=== PATIENT | female | born 1940 | race Caucasian/White ===

== ENCOUNTER 2017-05-26 04:02 | Observation (INO) | payer MEDICARE ==
[~2017-05-26] VITALS: Ht 154.9 cm; Wt 48.7 kg
[2017-05-26] MEDS ORDERED: NORCO 10-325 T1 EACH PO (04:21)
[2017-05-26] MEDS ORDERED: PROLIA60 MG/1 ML SUB-Q (04:21)
[2017-05-26] MEDS ORDERED: LOSARTAN POTAS100 MG PO (04:21)
[2017-05-26] MEDS ORDERED: ASPIRIN81 MG PO (04:22)
[2017-05-26] MEDS ORDERED: VENTOLIN HFA18 GM INH (04:22)
[2017-05-26] MEDS ORDERED: ADVAIR 100-501 EACH INH (04:23)
[2017-05-26] MEDS ORDERED: PREMARIN30 GM PV (04:23)
[2017-05-26] MEDS ORDERED: FLONASE ALLERG9.9 ML NAS (04:24)
[2017-05-26] MEDS ORDERED: ZOCOR10 MG PO (04:24)
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
--- NOTE | 2017-05-26 08:15 | NUR ---
DR PAVON IN TO SEE PATIENT. THIS RN ASSISTS PATIENT TO ORDER BREAKFAST.
--- NOTE | 2017-05-26 09:06 | NUR ---
ASSUMED CARE FROM CRISTOPHER WASHINGTON. REPORT RECIEVED. 0900 MEDICATIONS GIVEN TO PATIENT. PATIENT ENDORSES "HAVING GAG REFLEX WITH SWALLOWING, CHOKING ON PILLS." DR. VILLEGAS NOTIFIED.
--- NOTE | 2017-05-26 11:52 | NUR ---
PATIENT SITTING UP IN BED EATING LUNCH. CALL BUTTON IN REACH. NO OTHER NEEDS AT THIS TIME.
--- NOTE | 2017-05-26 12:03 | NUR ---
REPROT FROM [facility], TAKING OVER PT CARE. PT SITTING UP IN BED EATING LUNCH. ALERT AND ORIENTED. 97% OXYGEN SATURATION ON ROOM AIR. PT REPORTS NO PAIN.
--- NOTE | 2017-05-26 13:39 | NUR ---
PT OFF UNIT TO [facility]
--- NOTE | 2017-05-26 14:27 | NUR ---
PATIENT SITTING UP IN BED WITH IN ROOM. FRESH ICE WATER GIVEN. ORAL CARE DONE. NO OTHER NEEDS AT THIS TIME. CALL BUTTON IN REACH.
--- NOTE | 2017-05-26 14:44 | NUR ---
MED RECONCILICATION COMPLETED WITH REVIEW WITH PATIENT.
--- NOTE | 2017-05-26 16:09 | NUR ---
PT REPORTS SHE IS FEELING BETTER AND IS FRUSTRATED TO BE IN THE HOSPITAL. SHE UNDERSTANDS NEED TO STAY OVERNIGHT FOR OBSERVATION AND LABS IN AM TO MONITOR.
--- NOTE | 2017-05-26 17:33 | NUR ---
PT ADMITTED FROM [facility] THIS AM. SINCE ADMISSION SHE HAS BEEN ON ROOM AIR 95-99% OXYGEN SATURATION PER CONTINUOUS PULSE OXIMETRY. SHE HAS TACHYCARDIA 96-105 AT REST, UP TO 120 BPM WITH ACTIVITY. STANDBY ASSIST TO BATHROOM. NEBS SCHEDULED. MILD LABORED BREATHING WITH ACTIVITY.
--- NOTE | 2017-05-26 19:17 | NUR ---
RECEIVED REPORT FROM CRISTOPHER PARMAR. PATIENT HAS NO NEEDS AT THIS TIME.
--- NOTE | 2017-05-26 20:37 | NUR ---
SHIFT ASSESSMENT DONE AND EVENING MEDICATION GIVEN. PATIENT REPORTS HEADACHE AND TYLENOL GIVEN PER EMAR. NO OTHER NEEDS AT THIS TIME.
--- NOTE | 2017-05-26 22:32 | NUR ---
PATIENT SLEEPING RESTFULLY WITH UNLABORRED BREATHING AND O2 AT 93% ON RA.
--- NOTE | 2017-05-26 23:58 | NUR ---
PATIENT SLEEPING IN BED WITH NO SIGNS OF DISCOMFORT. RESPIRATIONS ARE NORMAL WITH NO SIGNS OF DIFFICULTY BREATHING. O2 AT 93% ON RA.
--- NOTE | 2017-05-27 01:09 | NUR ---
PATIENT IS ASLEEP. BREATHING IS EVEN AND UNLABORED, O2 SAT AT 92% ON RA AND HR AT 92.
--- NOTE | 2017-05-27 01:36 | NUR ---
VITALS AND PATIENT ASSESSMENT DONE. PATIENT TAKEN TO BATHROOM. NO OTHER NEEDS AT THIS TIME.
--- NOTE | 2017-05-27 02:39 | NUR ---
PATIENT ASLEEP. BREATHS ARE EVEN AND UNLABORED. O2 SAT AT 95% ON RA AND HR IS 91.
--- NOTE | 2017-05-27 03:44 | NUR ---
PATIENT IS ASLEEP. O2 SAT AT 94% ON RA, PULSE 88. BREATHING IS EVEN AND UNLABORED.
--- NOTE | 2017-05-27 05:15 | NUR ---
PATIENT HAS BEEN SLEEPING THROUGHOUT SHIFT. PATIENT REPORTED MEJIA AND TYLENOL WAS ADMINISTERED: PATIENT REPORTED ADEQUATE PAIN RELIEF. NO ACUTE CHANGES FROM BEGINNING OF SHIFT ASSESSMENT. INTENTIONAL ROUNDING DONE WITH ALL PATIENT'S NEEDS MET.
--- NOTE | 2017-05-27 05:56 | NUR ---
PATIENT AWAKE IN BED. DENIES ANY NEEDS AT THIS TIME. VITALS DONE.
--- NOTE | 2017-05-27 09:42 | NUR ---
PT IS SITTING UP IN BED VISITING WITH , CALL LIGHT IN REACH. PT WAS GIVEN A WARM WASH CLOTH FOR FACE AND HANDS. PT ASKED FOR MORE ICE WATER.
--- NOTE | 2017-05-27 11:17 | NUR ---
PT UP AMBULATING IN HALLS WITH SPOUSE AT THIS TIME. PT DOES NOT APPEAR TO HAVE ANY SHORTNESS OF BREATH. NO WEAKNESS, TOELRATING ACTIVITY WELL.
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
--- NOTE | 2017-05-27 14:11 | NUR ---
PT IS SITTING UP IN BED READING A BOOK. PT ASKED FOR MORE ICE WATER
--- NOTE | 2017-05-27 15:48 | NUR ---
PT UP INDEPENDENTLY IN ROOM, SPOUSE IN ROOM RYLEE AUGUSTE IN RECLINER. PT REPORTS NO SOB, NO PAIN. SHE SAID SHE ENJOYED HER SHOWER
--- NOTE | 2017-05-27 18:05 | NUR ---
PT IS SITTING UP IN BED WITH CALL LIGHT IN REACH. PT DID NOT NEED ANYTHING AT THE MOMENT
--- NOTE | 2017-05-27 18:25 | NUR ---
PT HAS HAD AN UNEVENTFUL DAY. PT V/S STABLE ON ROOM AIR. NO COMPLAINTS, HAS BEEN AFEBRILE. AMBULATED INDEPENDENTLY IN ROOM AND INI HALLS WITH SPOUSE, STEADY GAIT. GOOD APPETITE.
--- NOTE | 2017-05-27 19:00 | NUR ---
RECEIVED REPORT FROM RN. PATIENT DENIES NEEDS AT THIS TIME.
--- NOTE | 2017-05-27 21:00 | NUR ---
EVENING MEDICATION GIVEN AND ASSESSMENT DONE. PATIENT DENIES NEEDS AT THIS TIME.
--- NOTE | 2017-05-27 21:47 | EKG ---
[facility] [address] [place] [address] Signed Sinus tachycardia Anteroseptal infarct , age undetermined Abnormal ECG No previous ECGs available Confirmed by JACE BENTLEY MD ([id number]) on 05/27/2017 9:47:00 PM Electronically Signed By: JACE BENTLEY MD 05/27/17 2147 PATIENT NAME: BRADEN ESPINOSA Electrocardiogram DATE OF : 36 PHYSICIAN: JACE BENTLEY MD REPORT #: [id number] REPORT IS CONFIDENTIAL AND NOT TO BE RELEASED WITHOUT AUTHORIZATION
--- NOTE | 2017-05-27 23:00 | NUR ---
PATIENT IS ASLEEP. BREATHING IS EVEN AND UNLABORED.
--- NOTE | 2017-05-28 00:21 | NUR ---
PATIENT ASLEEP IN BED. 16 RPM, BREATHING IS EVEN AND UNLABORED.
--- NOTE | 2017-05-28 01:32 | NUR ---
PATIENT ASLEEP IN BED. 16 RPM, BREATHING IS EVEN AND UNLABORED.
--- NOTE | 2017-05-28 03:01 | NUR ---
PATIENT ASLEEP. 16 BPM, BREATHING IS EVEN AND UNLABORED.
--- NOTE | 2017-05-28 05:03 | NUR ---
PATIENT ASLEEP. BREATHING IS EVEN AND UNLABORED.
--- NOTE | 2017-05-28 06:10 | NUR ---
PATIENT HAS BEEN ASLEEP THROUGHOUT SHIFT, NO COMPLAINTS OF PAIN. SHE IS A SBA AND DOES NOT USE AN AMBULATORY AID. ASSESSMENTS HAVE BEEN BENIGN AND THERE WERE NO ACUTE CHANGES. BP IS ELEVATED THIS MORNING BUT IS NOT WITHIN [place] CALLING PARAMETERS. PATIENT IS ASYMPTOMATIC. WILL CONTINUE TO MONITOR BP.
--- NOTE | 2017-05-28 06:55 | NUR ---
BEDSIDE REPORT RECEIVED FROM CRISTOPHER GIVENS. PT AWAKE, ALERT, ORIENTED IN BED. PT READING BOOK, HAS NO REQUESTS AT THIS TIME, HAS ORDERED BREAKFAST. CALL LIGHT GIVEN TO PT. WILL CONTINUE TO REASSESS.
--- NOTE | 2017-05-28 07:00 | NUR ---
REPORT RECIEVED FROM CRISTOPHER GIVENS. PT AWAKE AND TALKATIVE, HOPING TO GO HOME TODAY. DENIES PAIN OR CONCERNS. HAD 2 LOOSE STOOL LAST NIGHT. VOIDING QS.
--- NOTE | 2017-05-28 07:07 | NUR ---
DR. BENTLEY CALLED, NOTIFIED OF PT CRITICAL WBC COUNT OF 33.1.
--- NOTE | 2017-05-28 08:14 | NUR ---
patient sitting up in bed eating breakfast with in room. patient refused shower. would like to shower when she goes home today.
--- NOTE | 2017-05-28 09:50 | NUR ---
PT AWAKE IN BED, ALERT, ORIENTED X3. PT LUNGS SOUND CLEAR. PT TEMPERATURE 98.0, BP 157/81, HR 90. PT HAS NO COMPLAINTS OF PAIN. AT BEDSIDE. PT STATING SHE IS READY TO GO HOME. WILL CONTINUE TO MONITOR, CALL LIGHT IN REACH.
--- NOTE | 2017-05-28 09:52 | NUR ---
PATIENT SITTIN UP IN BED WITH , [employer] INTELLIGENCE OFFICER CHIEF, AND NURSE IN ROOM. NO NEEDS AT THIS TIME. CALL BUTTON IN REACH.
--- NOTE | 2017-05-28 10:56 | NUR ---
PT UP AMBULATING HALLWAY WITH . STEADY GAIT. PT ISHMAEL WELL.
--- NOTE | 2017-05-28 11:35 | NUR ---
DR. BENTLEY IN TO SEE PT. DR. BENTLEY INFORMED PT OF ELEVATED WBC COUNT, WILL ORDER ABDOMINAL CT TO REVIEW ABDOMEN TO RULE OUT INFECTION, LOOK FOR SWOLLEN LYMPH NODES. PT VERBALIZED UNDERSTANDING. WILL CONTINUE TO MONITOR.
--- NOTE | 2017-05-28 11:48 | NUR ---
NOTIFIED CT OF ORDER FOR ABDOMINAL PELVIC CT. CT ORDERED TO ADMINISTER GASTROGAFIN CONTRAST NOW AND AT 1300, TO SCAN AT 1430.
--- NOTE | 2017-05-28 12:03 | NUR ---
FIRST ORAL DOSE OF GASTROGAFIN ADMINISTERED TO PT. PT INFORMED OF 1430 CT SCAN. PT VERBALIZED UNDERSTANDING. CALL LIGHT IN REACH.
--- NOTE | 2017-05-28 12:48 | NUR ---
PATIENT SITTING AT BEDSIDE EATING LUNCH WITH . NO OTHER NEEDS AT THIS TIME. CALL BUTTON IN REACH.
--- NOTE | 2017-05-28 12:58 | NUR ---
ADMINISTERED SECOND DOSE OF GASTROGRAFIN. PT SITTING IN BED. WAS ABLE TO EAT MOST OF BLT, ENSURE. PT AT BEDSIDE. WILL CONTINUE TO MONITOR, CALL LIGHT IN REACH.
--- NOTE | 2017-05-28 13:30 | NUR ---
PATIENT SITTING UP IN BED RESTING WITH IN ROOM. CALL BUTTON IN REACH. FRESH WATER. NO OTHER NEEDS AT THIS TIME.
--- NOTE | 2017-05-28 13:39 | NUR ---
PT AND WAITING-TRYING TO BE PATIENT, FOR DR BENTLEY TO DC HER. THEY HAVE BIG DESIRE TO GET ON [address] TO [place]. VERY FRIENDLY, GOD BLESS
--- NOTE | 2017-05-28 15:13 | NUR ---
AFTERNOON ASSESSMENT COMPLETE. PT LUNGS CLEAR THROUGHOUT ALL LOBES. PT STATED SHE HAD LOOSE BM THIS AFTERNOON. RESTING IN BED, AT BEDSIDE. PT HAS CALL LIGHT IN REACH.
[2017-05-28] MEDS ORDERED: VENTOLIN HFA18 GM INH (16:01)
--- NOTE | 2017-05-28 16:47 | NUR ---
PT DISCHARGED, OFF FLOOR. PHARMACIST MAYLIN AND RN PROVIDED DISCHARGE INFORMATION VERBALLY AND IN WRITTEN MATERIAL. PT AND HAD NO QUESTIONS. VITALS STABLE ON DISCHARGE.
== END 2017-05-28 16:42 | disposition home or self-care (01) ==
LOC: ED 04:02 → MS 04:04
PROVIDERS: ADMIT Internal Medicine
DX: J45.901 Unspecified asthma with (acute) exacerbation (principal); R59.0 Localized enlarged lymph nodes; D72.829 Elevated white blood cell count, unspecified; K80.20 Calculus of gallbladder without cholecystitis without obstruction; K31.89 Other diseases of stomach and duodenum; N28.1 Cyst of kidney, acquired; K76.89 Other specified diseases of liver; I10 Essential (primary) hypertension; E78.5 Hyperlipidemia, unspecified; G89.29 Other chronic pain; R13.10 Dysphagia, unspecified; M54.9 Dorsalgia, unspecified; T38.0X5A Adverse effect of glucocorticoids and synthetic analogues, initial encounter; Y92.239 Unspecified place in hospital as the place of occurrence of the external cause; Z79.82 Long term (current) use of aspirin; Z79.890 Hormone replacement therapy; Z77.110 Contact with and (suspected) exposure to air pollution; Z79.51 Long term (current) use of inhaled steroids; Z79.891 Long term (current) use of opiate analgesic; Z79.899 Other long term (current) drug therapy
CPT/HCPCS: 36415; 71010; 71260; 74177; 74230; 80048; 80053; 83605; 83880; 84484; 85025; 85379; 87040; 92610; 92611; 93005; 93010; 94640; 94644; 94760; 96365; 96374; 96375; 96376; 99285; G0378; G8996; G8997; J0696; J2930; Q9967